=== PATIENT | female | born 1985 | race Two or more races ===

== ENCOUNTER 2019-03-13 07:45 | Emergency (ER) | payer MEDICAID ==
[~2019-03-13] VITALS: Ht 167.6 cm; Wt 91.0 kg
[2019-03-13] MEDS ORDERED: HYDROCODONE/ACETAMINOPHEN 5/325MG TABLET PO ONE (10:30)
[2019-03-13 11:37] VITALS: BP 110/64
== END 2019-03-13 11:40 | disposition home or self-care (01) ==
LOC: ER 07:45
DX: S52.122A Displaced fracture of head of left radius, initial encounter for closed fracture (principal); Y04.8XXA Assault by other bodily force, initial encounter; Y93.89 Activity, other specified; Y92.89 Other specified places as the place of occurrence of the external cause; Y99.8 Other external cause status
CPT/HCPCS: 29105; 73080; 73090; 73110; 73130; 99283